=== PATIENT | male | born 1995 | race Caucasian/White ===

== ENCOUNTER 2021-01-12 08:00 | Outpatient (CLI) | payer OTHER | END 2021-01-12 23:59 | disposition home or self-care (01) | LOC: LAB.S 08:00 | PROVIDERS: ATTEND Physician Assistant Medical | DX: R05 Cough (principal); Z20.822 Contact with and (suspected) exposure to COVID-19 ==

== ENCOUNTER 2021-01-12 08:00 | Outpatient (CLI) | payer OTHER ==
--- NOTE | 2021-01-12 17:14 | XRAY Report ---
PROCEDURE: Chest 2 View X-Ray INDICATIONS: COUGH TECHNIQUE: 2 view(s) of the chest. COMPARISON: None. FINDINGS: Surgical changes and devices: None. Lungs and pleura: No pleural effusions or pneumothorax. Lungs are clear. Mediastinum: Mediastinal contours are normal. Heart size is normal. Bones and chest wall: No suspicious bony abnormalities. Soft tissues appear unremarkable. IMPRESSION: No acute cardiopulmonary disease. Reviewed by: Isaac Weber MD on 01/12/2021 5:13 PM PDT Approved by: Isaac Weber MD on 01/12/2021 5:13 PM PDT Station ID: [id number]
== END 2021-01-12 23:59 | disposition home or self-care (01) ==
LOC: DI.S 08:00
PROVIDERS: ATTEND Physician Assistant Medical
DX: R05 Cough (principal)